=== PATIENT | female | born 1930 | race Caucasian/White ===

== ENCOUNTER → 2016-12-09 | Outpatient (CLI) | payer OTHER ==
[~2016-12-09] MED LIST: ASPI81TA28 PO; ATRINS INH; CALC-20 PO; CLC100 PO; CRD200 PO; ERTA1INJ IV; ESTCR PV; LEVA45AE INH; LPT40 PO; LSX20 PO; LSX80 PO; POTA10PO PO; TIMO0.05 OP; [UNRECOGNIZED DRUG - CODE] OPB
[2016-12-09 15:09] LABS: BASO % 0.6 %; BASO ABS # 0.04 K/uL (0-0.2); COMPLETE YES; EOS % 2.5 %; IG% 0.1 %; LYMPH % 22.2 %; LYMPH ABS # 1.59 K/uL (1.2-3.4); MEAN CELL VOLUME 88.7 fL (80-100); MEAN CORPUSCULAR HGB CONC 32.7 g/dl (32-36); MEAN PLATELET VOLUME 11.4 fL (7.4-10.4); NEUT % 60.6 %; PLATELET COUNT 258 K/uL (130-400); RED BLOOD COUNT 4.62 M/uL (4.2-5.4); WHITE BLOOD COUNT 7.16 K/uL (4.8-10.8)
[2016-12-09 15:30] LABS: BLOOD UREA NITROGEN 13 mg/dl (7-18); BUN/CREATININE RATIO 18.1 (10-20); CALCIUM 8.8 mg/dl (8.5-10.1); CARBON DIOXIDE 35 mmol/L (21-32); CHLORIDE 106 mmol/L (98-107); CREATININE 0.74 mg/dl (0.60-1.20); GLUCOSE 99 mg/dl (70-99); POTASSIUM 3.9 mmol/L (3.5-5.1); SODIUM 144 mmol/L (136-145)
[2016-12-09 15:40] LABS: ALB/GLOB RATIO 0.8 (0.9-2); ALKALINE PHOSPHATASE 80 U/L (45-117); ALT/SGPT 23 U/L (12-78); AST/SGOT 19 U/L (15-37); CHOLESTEROL 152 mg/dl (0-200); CHOLESTEROL/HDL RATIO 1.7; HDL CHOLESTEROL 88 mg/dl; LDL CHOLESTEROL CALCULATED 50 mg/dl; TRIGLYCERIDES 71 mg/dl (0-150); VERY LOW DENSITY LIPOPROT CALC 14 mg/dl
== END | disposition home or self-care (01) ==
LOC: C.LAB 13:46
PROVIDERS: ATTEND Nurse Practitioner Family
DX: E78.00 Pure hypercholesterolemia, unspecified (principal)

== ENCOUNTER → 2017-05-24 | Outpatient (CLI) | payer OTHER ==
[~2017-05-24] MED LIST changes: -ASPI81TA28 PO; -ERTA1INJ IV; -ESTCR PV; -LEVA45AE INH; -LSX20 PO; -TIMO0.05 OP
== END | disposition home or self-care (01) ==
LOC: C.MAMM 11:00
PROVIDERS: ATTEND Nurse Practitioner Family
DX: M81.0 Age-related osteoporosis without current pathological fracture (principal)

== ENCOUNTER → 2017-06-25 | Outpatient (CLI) | payer OTHER ==
[~2017-06-25] MED LIST changes: +ASPI81TA28 PO; +ERTA1INJ IV; +ESTCR PV; +LEVA45AE INH; +LSX20 PO; +TIMO0.05 OP
[2017-06-25 10:44] LABS: BASO % 0.7 %; BASO ABS # 0.06 K/uL (0-0.2); COMPLETE YES; HEMATOCRIT 43.9 % (37-47); IG% 0.2 %; LYMPH % 23.9 %; LYMPH ABS # 2.01 K/uL (1.2-3.4); MEAN CELL VOLUME 91.1 fL (80-100); MEAN CORPUSCULAR HEMOGLOBIN 29.3 pg (25-34); MEAN CORPUSCULAR HGB CONC 32.1 g/dl (32-36); MEAN PLATELET VOLUME 12.5 fL (7.4-10.4); MONO % 7.9 %; NEUT % 65.3 %; PLATELET COUNT 214 K/uL (130-400); RED BLOOD COUNT 4.82 M/uL (4.2-5.4)
[2017-06-25 11:16] LABS: ALT/SGPT 22 U/L (12-78); AST/SGOT 18 U/L (15-37); BLOOD UREA NITROGEN 14 mg/dl (7-18); CALCIUM 9.2 mg/dl (8.5-10.1); CARBON DIOXIDE 31 mmol/L (21-32); CHLORIDE 106 mmol/L (98-107); CREATININE 0.72 mg/dl (0.60-1.20); GLUCOSE 91 mg/dl (70-99); POTASSIUM 4.4 mmol/L (3.5-5.1); SODIUM 145 mmol/L (136-145)
[2017-06-25 11:18] LABS: RATIO 14.5 mcg/mg (0-30.0)
[2017-06-25 11:19] LABS: ALB/GLOB RATIO 0.9 (0.9-2); ALKALINE PHOSPHATASE 80 U/L (45-117); CHOLESTEROL 150 mg/dl (0-200); CHOLESTEROL/HDL RATIO 1.7; HDL CHOLESTEROL 87 mg/dl; LDL CHOLESTEROL CALCULATED 46 mg/dl; TRIGLYCERIDES 87 mg/dl (0-150); VERY LOW DENSITY LIPOPROT CALC 17 mg/dl
== END | disposition home or self-care (01) ==
LOC: C.LAB 09:35
PROVIDERS: ATTEND Nurse Practitioner Family
DX: I11.9 Hypertensive heart disease without heart failure (principal); E78.00 Pure hypercholesterolemia, unspecified; I35.0 Nonrheumatic aortic (valve) stenosis; I48.0 Paroxysmal atrial fibrillation; R09.02 Hypoxemia